=== PATIENT | female | born 1975 | race Hispanic/Latino ===

== ENCOUNTER 2020-07-07 13:15 | Emergency (ER) | payer SELFPAY, OTHER ==
[2020-07-07 13:38] LABS: #Eosinphils 0.1 thou/uL (0.0-0.7); #Lymphocytes 2.7 thou/uL (1.20-3.40); #Monocytes 0.4 thou/uL (0.11-0.59); #Neutrophils 4.1 thou/uL (1.40-6.50); %Basophils 0.4 % (0.0-1.0); %Eosinophils 0.8 % (0.0-10.0); %Lymphocytes 36.9 % (21.0-51.0); %Monocytes 5.3 % (0.0-10.0); %Neutrophils 56.5 % (42.0-75.0); Hemoglobin 13.1 g/dL (12.0-16.0); Mean Corpuscular HGB CONC 33.1 g/dL (32.0-36.0); Mean Corpuscular Hemoglobin 29.1 pg (27.0-31.0); Mean Corpuscular Volume 87.7 fL (78.0-98.0); Mean Platelet Volume 8.1 fL (7.4-10.4); Platelet Count 268 thou/uL (130-400); RBC Distribution Width 12.2 % (11.5-14.5); White Blood Cell (WBC) Count 7.3 thou/uL (4.8-10.8)
[2020-07-07 14:12] LABS: ALT (SGPT) 68 U/L (8-55); AST (SGOT) 40 U/L (5-34); Albumin 4.3 g/dL (3.5-5.0); Alkaline Phosphatase 63 U/L (40-110); Anion Gap 17 mmol/L (10-20); BUN (Urea Nitrogen) 15 mg/dL (7.0-18.7); Bilirubin, Total 0.4 mg/dL (0.2-1.2); Calc. Creatinine Clearance 0 mL/min (70-130); Carbon Dioxide 20 mmol/L (22-29); Chloride 104 mmol/L (98-107); Estimated GFR-MDRD 90; Glucose 184 mg/dL (70-105); Protein, Total 7.3 g/dL (6.0-8.3); Sodium 137 mmol/L (136-145)
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
[2020-07-07] MEDS ORDERED: Fentanyl 100 MCG/2 ML VIAL ONE (14:50)
[2020-07-07] MEDS ORDERED: Iopamidol-370 76% 500 ML 1 ML ONE (16:20)
== END 2020-07-07 16:26 | disposition home or self-care (01) ==
LOC: ERS 13:15
DX: M54.6 Pain in thoracic spine (principal); M54.5 Low back pain; M54.2 Cervicalgia; E11.9 Type 2 diabetes mellitus without complications; E78.5 Hyperlipidemia, unspecified; V89.2XXA Person injured in unspecified motor-vehicle accident, traffic, initial encounter
CPT/HCPCS: 70450; 71260; 72125; 74177; 80053; 85025; 96374; J3010; Q9967